=== PATIENT | female | born 1975 | race Caucasian/White ===

== ENCOUNTER 2022-07-15 18:22 | Observation (INO) ==
[2022-07-15] MEDS ORDERED: methylPREDNISolone 125 MG/2 ML VIAL IV STA (18:34)
[2022-07-15] MEDS ORDERED: SODIUM CHLORIDE 0.9% 500 ML IV STA (18:34)
[2022-07-15] MEDS ORDERED: ALBUT/IPRATROP 3MG/0.5MG NEB 3 ML VIAL NEB STA (18:34)
[2022-07-15 18:44] LABS: Basophils # (auto) 0.01 K/uL (0-0.2); Basophils % (auto) 0.2 %; Eosinophils # (auto) 0.02 K/uL (0-0.50); Eosinophils % (auto) 0.4 %; Hematocrit (blood only) 37.9 % (34.1-44.9); Hemoglobin 12.4 g/dl (12.0-16.0); Immature Granulocytes # (auto) 0.01 K/uL (0.00-0.02); Immature Granulocytes % (auto) 0.2 %; Lymphocytes # (auto) 0.79 K/uL (1.2-3.4); Lymphocytes % (auto) 14.2 %; Mean Corpuscular Hemoglobin 28.1 pg (25.0-34.0); Mean Corpuscular Hgb Conc 32.7 g/dL (32.0-36.0); Mean Corpuscular Volume 85.9 fL (80.0-100.0); Mean Platelet Volume 9.7 fL (9.4-12.3); Monocytes # (auto) 0.65 K/uL (0.24-0.82); Monocytes % (auto) 11.7 %; Neutrophils # (auto) 4.07 K/uL (1.4-6.5); Neutrophils % (auto) 73.3 %; Platelet Count 213 K/uL (130-400); RDW Coefficient of Variation 13.5 % (11.5-14.5); RDW Standard Deviation 42.6 fL (36.4-46.3); Red Blood Count 4.41 M/uL (3.93-5.22); White Blood Count 5.55 K/ul (4.8-10.8)
[2022-07-15 18:55] LABS: Partial Thromboplastin Ratio 1.1; Partial Thromboplastin Time 30.2 Seconds (21.0-31.0); Prothrombin Time 10.9 Seconds (9.0-12.0)
--- NOTE | 2022-07-15 18:56 | Emergency Department Note ---
Impression & Plan Hypoxia, COPD exacerbation, Flu-like symptoms, Influenza ED Provider Note NAME: CAMELIA GEORGE AGE: 47 SEX: F : 1975 ARRIVES VIA: Ambulance INFORMANT: [Patient][nursing, EMS] ED PROVIDER(S):[Canelo Scherer MD] CHIEF COMPLAINT: Short of breath HISTORY OF PRESENT ILLNESS: The patient is a 47-year-old female with a history of COPD. She presents with 3 days of increasing shortness of breath and fever. She has had a cough and some back pain. Today, she developed some significant central chest pain that has been present all day. She became so short of breath that she felt she should come by ambulance to the hospital. In route, she was given 2 sublingual n itroglycerin, 4 baby aspirin and a DuoNeb, she feels somewhat better. As per EMS, her O2 saturation on room air was 87% prior to their nebulizer treatment. The patient states that her significant other has been ill with a respiratory complaint, he seems to be getting better. She is not sure if she caught something from him or if this is something else. REVIEW OF SYSTEMS: See HPI for pertinent positives and negatives. A total of ten systems were reviewed and were otherwise negative. PMHx/PSHx: See Below SOCIAL HISTORY: See Below. PHYSICAL EXAM: GENERAL: Patient is in no acute distress. HEENT: No acute trauma, normocephalic atraumatic, mucous membranes moist, no nasal congestion, no scleral icterus. NECK: No stridor, no adenopathy, no meningismus, trachea is midline. LUNGS: Moist cough noted, wheezing bilaterally with diminished breath sounds bilaterally. No significant respiratory distress currently HEART: Tachycardic and irregular, no murmurs. ABDOMEN: Soft, nontender, bowel sounds positive, no peritonitis. EXTREMITIES: No cyanosis or edema, full range of motion of all the joints without pain or difficulty, no signs for acute trauma. NEUROLOGIC: Oriented x 3, no acute motor or sensory deficits, no focal weakness. SKIN: No rash, no jaundice, no diaphoresis. DIFFERENTIAL DIAGNOSIS: Reactive airway disease, pneumonia, influenza, RSV, COVID-19, pneumothorax, COPD, CHF, infection, cardiac ischemia, anemia, pulmonary embolism, bronchitis, as well as other pathologies. EMERGENCY DEPARTMENT COURSE/PROCEDURES: ECG: Indication was shortness of breath. The ECG shows a sinus tachycardia with frequent PVCs. The rate is 122. There is no ST elevation, the QTc is 447. Continuous Cardiac Monitoring: An order was placed for continuous cardiac monitoring. The monitor shows a rate of 121 with sinus tachycardia with PVCs. Critical Care Note: I have personally spent 47 minutes of critical care time in the direct management of this patient. This includes bedside care, interpretation of diagnostic studies, and testing, discussion with consultants, patient, and family members, and other required patient management activities. This 47 minutes is in excess of all separately billable procedures. MEDICAL DECISION MAKING: There is no leukocytosis or concerning anemia. There is a normal platelet count. No coagulopathy. Potassium is slightly low but not in need of emergent correction. No renal failure. Calcium was somewhat low, no concerning liver enzyme elevation. Lactic acid level was not elevated making severe sepsis less likely. ECG shows a sinus tachycardia with frequent PVCs, no obvious ischemia. Cardiac enzyme testing x1 is not consistent with acute cardiac injury. Respiratory bio fire returned positive for influenza A. Chest film did not show pneumonia or CHF. On exam, patient was wheezing with diminished breath sounds. She was initially hypoxic. The patient received a DuoNeb, she was given IV saline, 500 cc. She received IV Solu-Medrol, 60 mg. The patient has influenza A, this has led to hypoxia, dyspnea, flulike symptoms and a flare of her COPD. Given her hypoxia and COPD history, I do think a hospital stay is warranted. I spoke with the patient and case management, the on-call hospitalist was consulted. The patient does seem improved with her treatment provided here in [facility] ED. 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 Beliefs That Will Affect Care: None Current Living Situation: Spouse Feels Safe at Home: Yes Assistive Devices: Oxygen - Continuous Allergies Allergies Allergy/AdvReac Type Severity Reaction Status Date / Time No Known Allergies Allergy Verified 05/25/22 12:49 Home Meds Home Medications Medication Instructions Recorded Confirmed ipratropium 0.5 mg-albuterol 3 mg 3 ml inhalation QID 07/13/18 05/25/22 (2.5 mg base)/3 mL nebulization soln albuterol sulfate 90 mcg/actuation 2 puffs inhalation Q4H PRN 02/20/19 05/25/22 aerosol inhaler (Ventolin HFA) Previous Rx's Medication Instructions Recorded nebulizer accessories #1 ea 02/08/21 nebulizers #1 ea 02/08/21 budesonide 0.5 mg/2 mL suspension 0.5 mg (2 mL) inhalation BID #360 12/04/21 for nebulization mL Symbicort 160 mcg-4.5 2 inh inhalation BID #10.2 grams 02/12/22 mcg/actuation HFA aerosol inhaler (budesonide-formoterol) umeclidinium 62.5 mcg/actuation 1 inh inhalation DAILY #30 ea 03/22/22 blister powder for inhalation (Incruse Ellipta) benralizumab 30 mg/mL subcutaneous 30 mg subcut .every 4 weeks #1 mL 05/28/22 syringe (Fasenra) Results & Data (ED) Vital Signs Vital Signs - 24 hr 07/15/22 18:35 07/15/22 19:05 07/15/22 20:00 Pulse Rate 118 H 106 H Pulse Rate [Apical] 106 H Pulse Rate from SpO2 Sensor 106 H Pulse Rhythm Irregular Respiratory Rate 14 20 Blood Pressure 149/87 H Blood Pressure Mean 107 Pulse Oximetry 88 L 92 91 Oxygen Delivery Method Room Air Room Air Room Air Sepsis Recent Fever Within 48 Hours Yes Sepsis New/Unexplained Change in Mental Status No Sepsis Action Taken by Nursing No Action Required Home Medications Current Medication List: was personally reviewed by me Laboratory Data Attestation: I reviewed the patient's lab results. Result diagrams: 07/15/22 18:33 07/15/22 18:33 Lab Results 07/15/22 07/15/22 07/15/22 Range/Units 18:33 18:33 18:33 WBC 5.55 (4.8-10.8) K/ul RBC 4.41 (3.93-5.22) M/uL Hgb 12.4 (12.0-16.0) g/dl Hct 37.9 (34.1-44.9) % MCV 85.9 (80.0-100.0) fL MCH 28.1 (25.0-34.0) pg MCHC 32.7 (32.0-36.0) g/dL RDW Std Deviation 42.6 (36.4-46.3) fL RDW Coeff of Suleiman 13.5 (11.5-14.5) % Plt Count 213 (130-400) K/uL MPV 9.7 (9.4-12.3) fL Immature Gran % (Auto) 0.2 % Neut % (Auto) 73.3 % Lymph % (Auto) 14.2 % [place] % (Auto) 11.7 % Eos % (Auto) 0.4 % Baso % (Auto) 0.2 % Neut # (Auto) 4.07 (1.4-6.5) K/uL Lymph # (Auto) 0.79 L (1.2-3.4) K/uL [place] # (Auto) 0.65 (0.24-0.82) K/uL Eos # (Auto) 0.02 (0-0.50) K/uL Baso # (Auto) 0.01 (0-0.2) K/uL Immature Gran # (Auto) 0.01 (0.00-0.02) K/uL PT 10.9 (9.0-12.0) Seconds INR 1.0 (0.9-1.1) APTT 30.2 (21.0-31.0) Seconds PTT Ratio 1.1 Sodium 134 L (136-145) mmol/L Potassium 3.4 L (3.5-5.1) mmol/L Chloride 100 (98-107) mmol/L Carbon Dioxide 26 (21-32) mmol/L Anion Gap 8 (3-11) BUN 10 (6-23) mg/dl Creatinine 0.86 (0.6-1.2) mg/dl Est Cr Clr Drug Dosing 76.5 ml/min Est GFR ( Amer) 93.9 ml/min Est GFR (Non-Af Amer) 81.0 ml/min BUN/Creatinine Ratio 11.6 (10-20) Glucose 118 H (70-99(Fasting)) mg/dl Lactate (0.4-2.0) mmol/L Calcium 7.9 L (8.5-10.1) mg/dl Magnesium 1.9 (1.7-2.4) mg/dl Total Bilirubin 0.3 (0.2-1.0) mg/dl AST 29 (13-39) U/L ALT 30 (7-52) U/L Alkaline Phosphatase 107 H (34-104) U/L Troponin I High Sens 6.4 (0-14) pg/ml C-Reactive Protein (0-0.5) mg/dl Total Protein 7.0 (6.0-8.3) gm/dl Albumin 3.8 (3.4-5.0) gm/dl Globulin 3.2 (2.5-4.0) gm/dl Albumin/Globulin Ratio 1.2 (0.9-2) Procalcitonin (0-0.5) ng/ml Adenovirus (PCR) (NotDetected) B. pertussis DNA (PCR) (NotDetected) B.parapertussis DNA PCR (NotDetected) C. pneumoniae DNA (PCR) (NotDetected) Coronavirus OC43 (PCR) (NotDetected) Coronavirus HKU1 (PCR) (NotDetected) Coronavirus 229E (PCR) (NotDetected) SARS-CoV-2 (PCR) (NotDetected) Coronavirus NL63 (PCR) (NotDetected) Human Metapneumovir PCR (NotDetected) Influenza A (H3) PCR (NotDetected) Influenza Type B (PCR) (NotDetected) M. pneumoniae (PCR) (NotDetected) Parainfluenza 1 (PCR) (NotDetected) Parainfluenza 2 (PCR) (NotDetected) Parainfluenza 3 (PCR) (NotDetected) Parainfluenza 4 (PCR) (NotDetected) RSV (PCR) (NotDetected) Entero/Rhino (PCR) (NotDetected) 07/15/22 07/15/22 07/15/22 Range/Units 18:33 18:33 18:49 WBC (4.8-10.8) K/ul RBC (3.93-5.22) M/uL Hgb (12.0-16.0) g/dl Hct (34.1-44.9) % MCV (80.0-100.0) fL MCH (25.0-34.0) pg MCHC (32.0-36.0) g/dL RDW Std Deviation (36.4-46.3) fL RDW Coeff of Suleiman (11.5-14.5) % Plt Count (130-400) K/uL MPV (9.4-12.3) fL Immature Gran % (Auto) % Neut % (Auto) % Lymph % (Auto) % [place] % (Auto) % Eos % (Auto) % Baso % (Auto) % Neut # (Auto) (1.4-6.5) K/uL Lymph # (Auto) (1.2-3.4) K/uL [place] # (Auto) (0.24-0.82) K/uL Eos # (Auto) (0-0.50) K/uL Baso # (Auto) (0-0.2) K/uL Immature Gran # (Auto) (0.00-0.02) K/uL PT (9.0-12.0) Seconds INR (0.9-1.1) APTT (21.0-31.0) Seconds PTT Ratio Sodium (136-145) mmol/L Potassium (3.5-5.1) mmol/L Chloride (98-107) mmol/L Carbon Dioxide (21-32) mmol/L Anion Gap (3-11) BUN (6-23) mg/dl Creatinine (0.6-1.2) mg/dl Est Cr Clr Drug Dosing ml/min Est GFR ( Amer) ml/min Est GFR (Non-Af Amer) ml/min BUN/Creatinine Ratio (10-20) Glucose (70-99(Fasting)) mg/dl Lactate 0.9 (0.4-2.0) mmol/L Calcium (8.5-10.1) mg/dl Magnesium (1.7-2.4) mg/dl Total Bilirubin (0.2-1.0) mg/dl AST (13-39) U/L ALT (7-52) U/L Alkaline Phosphatase (34-104) U/L Troponin I High Sens (0-14) pg/ml C-Reactive Protein 3.19 H (0-0.5) mg/dl Total Protein (6.0-8.3) gm/dl Albumin (3.4-5.0) gm/dl Globulin (2.5-4.0) gm/dl Albumin/Globulin Ratio (0.9-2) Procalcitonin 0.06 (0-0.5) ng/ml Adenovirus (PCR) (NotDetected) B. pertussis DNA (PCR) (NotDetected) B.parapertussis DNA PCR (NotDetected) C. pneumoniae DNA (PCR) (NotDetected) Coronavirus OC43 (PCR) (NotDetected) Coronavirus HKU1 (PCR) (NotDetected) Coronavirus 229E (PCR) (NotDetected) SARS-CoV-2 (PCR) (NotDetected) Coronavirus NL63 (PCR) (NotDetected) Human Metapneumovir PCR (NotDetected) Influenza A (H3) PCR (NotDetected) Influenza Type B (PCR) (NotDetected) M. pneumoniae (PCR) (NotDetected) Parainfluenza 1 (PCR) (NotDetected) Parainfluenza 2 (PCR) (NotDetected) Parainfluenza 3 (PCR) (NotDetected) Parainfluenza 4 (PCR) (NotDetected) RSV (PCR) (NotDetected) Entero/Rhino (PCR) (NotDetected) 07/15/22 Range/Units 19:10 WBC (4.8-10.8) K/ul RBC (3.93-5.22) M/uL Hgb (12.0-16.0) g/dl Hct (34.1-44.9) % MCV (80.0-100.0) fL MCH (25.0-34.0) pg MCHC (32.0-36.0) g/dL RDW Std Deviation (36.4-46.3) fL RDW Coeff of Suleiman (11.5-14.5) % Plt Count (130-400) K/uL MPV (9.4-12.3) fL Immature Gran % (Auto) % Neut % (Auto) % Lymph % (Auto) % [place] % (Auto) % Eos % (Auto) % Baso % (Auto) % Neut # (Auto) (1.4-6.5) K/uL Lymph # (Auto) (1.2-3.4) K/uL [place] # (Auto) (0.24-0.82) K/uL Eos # (Auto) (0-0.50) K/uL Baso # (Auto) (0-0.2) K/uL Immature Gran # (Auto) (0.00-0.02) K/uL PT (9.0-12.0) Seconds INR (0.9-1.1) APTT (21.0-31.0) Seconds PTT Ratio Sodium (136-145) mmol/L Potassium (3.5-5.1) mmol/L Chloride (98-107) mmol/L Carbon Dioxide (21-32) mmol/L Anion Gap (3-11) BUN (6-23) mg/dl Creatinine (0.6-1.2) mg/dl Est Cr Clr Drug Dosing ml/min Est GFR ( Amer) ml/min Est GFR (Non-Af Amer) ml/min BUN/Creatinine Ratio (10-20) Glucose (70-99(Fasting)) mg/dl Lactate (0.4-2.0) mmol/L Calcium (8.5-10.1) mg/dl Magnesium (1.7-2.4) mg/dl Total Bilirubin (0.2-1.0) mg/dl AST (13-39) U/L ALT (7-52) U/L Alkaline Phosphatase (34-104) U/L Troponin I High Sens (0-14) pg/ml C-Reactive Protein (0-0.5) mg/dl Total Protein (6.0-8.3) gm/dl Albumin (3.4-5.0) gm/dl Globulin (2.5-4.0) gm/dl Albumin/Globulin Ratio (0.9-2) Procalcitonin (0-0.5) ng/ml Adenovirus (PCR) Not Detected (NotDetected) B. pertussis DNA (PCR) Not Detected (NotDetected) B.parapertussis DNA PCR Not Detected (NotDetected) C. pneumoniae DNA (PCR) Not Detected (NotDetected) Coronavirus OC43 (PCR) Not Detected (NotDetected) Coronavirus HKU1 (PCR) Not Detected (NotDetected) Coronavirus 229E (PCR) Not Detected (NotDetected) SARS-CoV-2 (PCR) Not Detected (NotDetected) Coronavirus NL63 (PCR) Not Detected (NotDetected) Human Metapneumovir PCR Not Detected (NotDetected) Influenza A (H3) PCR DETECTED A* (NotDetected) Influenza Type B (PCR) Not Detected (NotDetected) M. pneumoniae (PCR) Not Detected (NotDetected) Parainfluenza 1 (PCR) Not Detected (NotDetected) Parainfluenza 2 (PCR) Not Detected (NotDetected) Parainfluenza 3 (PCR) Not Detected (NotDetected) Parainfluenza 4 (PCR) Not Detected (NotDetected) RSV (PCR) Not Detected (NotDetected) Entero/Rhino (PCR) Not Detected (NotDetected) Administered Medications Enoxaparin Sodium (Enoxaparin Inj 40 Mg/0.4 Ml Syr) 40 mg SQ HS [facility] Stop: 08/14/22 22:59 Last Admin: 07/16/22 00:15 Dose: Not Given Documented By: RODRIGO Guaifenesin (Guaifenesin 600 Mg Tabcr) 1,200 mg PO BID [facility] Stop: 08/14/22 22:28 Last Admin: 07/16/22 00:14 Dose: 1,200 mg Documented By: RODRIGO Potassium Chloride/Sodium Chloride (Normal Saline W/20 Meq Kcl) 20 meq in 1,000 mls @ 80 mls/hr IV .[id number] [facility] Stop: 07/16/22 10:58 Last Admin: 07/16/22 00:16 Dose: 80 mls/hr Documented By: RODRIGO Oseltamivir Phosphate (Oseltamivir Phosphate 75 Mg Cap) 75 mg PO BID [facility]; Protocol Stop: 07/20/22 22:28 Last Admin: 07/16/22 00:14 Dose: 75 mg Documented By: RODRIGO Discontinued Medications Albuterol (Albut/Ipratrop 3mg/0.5mg Neb 3 Ml Vial) 3 ml NEB NOW STA; Protocol Stop: 07/15/22 18:35 Last Admin: 07/15/22 19:04 Dose: 3 ml Documented By: RODRIGO Azithromycin (Azithromycin 250 Mg Tab) 500 mg PO NOW ONE Stop: 07/15/22 22:30 Last Admin: 07/16/22 00:14 Dose: 500 mg Documented By: RODRIGO Sodium Chloride (Nss) 500 mls @ 999 mls/hr IV .Q31M STA Stop: 07/15/22 19:04 Last Infusion: 07/15/22 20:50 Dose: 0 mls/hr Documented By: Admin: 07/15/22 19:02 Dose: 999 mls/hr Documented By: RODRIGO Methylprednisolone (Methylprednisolone 125 Mg/2 Ml Vial) 60 mg IV NOW STA Stop: 07/15/22 18:35 Last Admin: 07/15/22 19:04 Dose: 60 mg Documented By: RODRIGO Potassium Chloride (Potassium Chloride Crtab 20 Meq Tabcr) 40 meq PO NOW STA Stop: 07/15/22 22:30 Last Admin: 07/16/22 00:19 Dose: 40 meq Documented By: RODRIGO Imaging Data Radiologist's Impression: Chest X-Ray 07/15/22 18:35 XR chest 1V portable HISTORY: Dyspnea COMPARISON: Chest 07/13/2018. FINDINGS: No pneumothorax. No pleural effusions. The heart is top normal in size. The lungs are hyperexpanded. No evidence for pulmonary edema. No new focal lung consolidations to suggest a pneumonia. Stable interstitial prominence of the lung bases may be due to vascular crowding from the hyperexpanded lungs. IMPRESSION: No significant change compared to the prior study. No acute process. ACT 112: Negative or not required by law. Electronically signed by: Javier Baldwin M.D. 07/15/2022 7:25 PM Discharge Plan Visit Data Chief Complaint: Illness Stated Complaint: CHEST PAIN, FEVER, ILLNESS ED Provider: Canelo Scherer Discharge Problem: Hypoxia, COPD exacerbation, Flu-like symptoms, Influenza Patient Disposition: Admitted As Inpatient Condition: Fair Discharge Instructions Interventions: ED Discharge Assessment Last Done: 07/15/22 22:29
[2022-07-15 19:10] LABS: Troponin I High Sensitivity 6.4 pg/ml (0-14)
[2022-07-15 19:15] LABS: Albumin Globulin Ratio 1.2 (0.9-2); Albumin Level 3.8 gm/dl (3.4-5.0); BUN Creatinine Ratio 11.6 (10-20); Bilirubin,Total 0.3 mg/dl (0.2-1.0); Calcium 7.9 mg/dl (8.5-10.1); Creatinine Clr Calc Pharmacy 76.5 ml/min; Est GFR (African American) 93.9 ml/min; Globulin 3.2 gm/dl (2.5-4.0); Magnesium 1.9 mg/dl (1.7-2.4); Potassium 3.4 mmol/L (3.5-5.1)
--- NOTE | 2022-07-15 19:26 | XRay Report ---
XR chest 1V portable HISTORY: Dyspnea COMPARISON: Chest 07/13/2018. FINDINGS: No pneumothorax. No pleural effusions. The heart is top normal in size. The lungs are hyper expanded. No evidence for pulmonary edema. No new focal lung consolidations to suggest a pneumonia. S table interstitial prominence of the lung bases may be due to vascular crowding from the hyperexpande d lungs. IMPRESSION: No significant change compared to the prior study. No acute process. ACT 112: Negative or not required by law. Electronically signed by: Javier Baldwin M.D. 07/15/2022 7:25 PM
--- NOTE | 2022-07-15 19:57 | History & Physical Report ---
Date of Service July 15, 2022 Assessment & Plan (1) COPD with exacerbation: Plan: Fever/chills, body aches, shortness of breath, and increased cough/mucus x3 days. Hypoxic to 88% on room air and improved on 2L, scattered wheezes on exam --> Moderate COPD exacerbation due to influenza A. - s/p SoluMedrol 60mg IV in ED - continue with 40mg IV Q8H - Start 5-day z-pack as well as Oseltamivir 75mg PO BID - s/p Duonebs x1 and Albuterol nebs x1, with tachycardia 100s-110s - continue with Xopenex nebs Q6H scheduled + Q2H PRN - pulmonary toilet: Mucinex BID, incentive spirometry and flutter valve - light IV hydration with NSS +20mEq KCl @80cc/hr x1L (2) Influenza A: Plan: Plan as above (3) Tachycardia: Plan: Sinus tachycardia 100s-110s, likely due to frequent Albuterol dosing prior to admission. Utilize Xopenex nebs as stated above. Telemetry monitoring. (4) Eosinophilic asthma: Plan: F/w Dr. Harmon and Dr. Woo, with plans to start Fasenra qmonthly injections. (5) Severe persistent asthma: Plan: Continue home inhalers (6) Hypokalemia: Plan: K 3.4 - repleted with KCl 40mEq tablet and K-containing IVFs. - check BMP in AM History of Present Illness Chief Complaint: illness Primary Care Provider: Bety Yang is a 47yo female with PMHx significant for COPD (Gold 4, FEV1 26% when checked in 03/2022), severe persistent eosinophilic asthma (on Fasenra), chronic hypoxic respiratory failure (on home O2), and significant second hand smoke exposure hx, who presented to [facility] ED on 07/15 for fever/chills, body aches and cough, x3 days. Also c/o inspiratory chest/back pain that occurred with cough, in addition to hypoxia to 87% on room air at home. Patient was given ASA 324mg, Nitro SL x2 and Duonebs x1 by EMS with minimal improvement in s ymptoms. In the ED the patient was tachycardic to 118 and initially SpO2 88% on room air but improved to 92% on room air. Labs significant for leukopenia 0.79, Na 134, K 3.4. Respiratory biofire panel positive for influenza A. CXR with chronically hyperexpanded lungs but no acute process. In the ED patient was given Albuterol nebs x1 (total of 2 today), NSS 500cc bolus, and SoluMedrol 60mg IV x1. Allergies Allergy/AdvReac Type Severity Reaction Status Date / Time No Known Allergies Allergy Verified 05/25/22 12:49 Home Medications Medication Instructions Recorded Confirmed Type ipratropium 0.5 mg-albuterol 3 mg 3 ml inhalation QID 07/13/18 07/16/22 History (2.5 mg base)/3 mL nebulization soln nebulizer accessories #1 ea 02/08/21 07/16/22 Rx nebulizers #1 ea 02/08/21 07/16/22 Rx budesonide 0.5 mg/2 mL suspension 0.5 mg (2 mL) inhalation BID #360 12/04/21 07/16/22 Rx for nebulization mL Symbicort 160 mcg-4.5 2 inh inhalation BID #10.2 grams 02/12/22 07/16/22 Rx mcg/actuation HFA aerosol inhaler (budesonide-formoterol) umeclidinium 62.5 mcg/actuation 1 inh inhalation DAILY #30 ea 03/22/22 07/16/22 Rx blister powder for inhalation (Incruse Ellipta) benralizumab 30 mg/mL subcutaneous 30 mg subcut .every 4 weeks #1 mL 05/28/22 07/16/22 Rx syringe (Fasenra) acetaminophen 500 mg tablet 1,000 mg PO Q6H PRN Pain 07/16/22 07/16/22 History (Tylenol Extra Strength) azithromycin 250 mg tablet 250 mg PO QAM #1 tab 07/18/22 Rx oseltamivir 75 mg capsule (Tamiflu) 75 mg PO BID #4 caps 07/18/22 Rx prednisone 20 mg tablet 40 mg PO QAM #1 tab 07/18/22 Rx Past Med/Surg History Medical History Chronic respiratory failure with hypoxia, on home O2 therapy COPD (chronic obstructive pulmonary disease) Eosinophilic asthma Severe persistent asthma Family History Other No significant family history Social History Smoking Status: Never smoker Second Hand Exposure: Yes (SIGNIFICANT); Hx Alcohol Use: No Hx Substance Use: No Preferred Language: Croatian Communication Ability: Effective Composite Laminator Required: No Beliefs That Will Affect Care: Spiritual Current Living Situation: Family Feels Safe at Home: Yes Assistive Devices: Other Review of Systems Review of Systems: All systems reviewed & are unremarkable except as noted in HPI & below Physical Exam Physical Exam: General: A&Ox3. NAD. Cooperative. HEENT: Atraumatic, normocephalic. Pulm: Bilateral wheezes, but good aeration. No rales/rhonchi. Symmetrical chest rise. No increase work of breathing. No respiratory distress. Cardiac: RRR, -mrg. Radial pulses intact and symmetrical. No LE edema. Abdominal: soft, non-tender, non-distended, BS x 4 Skin: warm, dry, no rash Results & Data Results & Data ([facility]) Vital Signs (Past 12 Hours) Vital Signs Pulse Pulse Resp BP Pulse Ox O2 Del Method 07/15/22 19:05 106 H 14 92 Room Air 07/15/22 18:35 118 H 149/87 H 88 L Room Air Supervising Physician Co-Signing Physician Notes Attending addendum: I have physically seen this patient, have supervised the medical residents activities, and agree with the H&P unless as otherwise noted. Assessment and Plan: COPD exacerbation/influenza A/eosinophilic asthma- Received Solu-Medrol 60 mg IV in the ED Solu-Medrol 40 mg IV every 8 hours Azithromycin Z-Rush Tamiflu 75 mg p.o. twice daily Xopenex nebulizer every 6 hours while awake and every 2 hours as needed Guaifenesin extended release 12 mg p.o. twice daily Incentive spirometry NSS + KCl 20 mEq at 80 mils per hour To begin Fasenra monthly injections with pulmonology and allergy soon Remaining orders and notations as noted Resident Activity Tracking Resident Involvement: Resident Care Provided Care Provided: Adult Hospital Medicine
[2022-07-15 20:09] LABS: Adenovirus PCR Not Detected (NotDetected); Bordetella parapertussis PCR Not Detected (NotDetected); Bordetella pertussis PCR Not Detected (NotDetected); Chlamydia pneumoniae PCR Not Detected (NotDetected); Coronavirus 229E PCR Not Detected (NotDetected); Coronavirus CoV-2 (COVID19)PCR Not Detected (NotDetected); Coronavirus HKU1 PCR Not Detected (NotDetected); Coronavirus NL63 PCR Not Detected (NotDetected); Coronavirus OC43PCR Not Detected (NotDetected); Human Metapneumovirus PCR Not Detected (NotDetected); Influenza B PCR Not Detected (NotDetected); Mycoplasma pneumoniae PCR Not Detected (NotDetected); Parainfluenza Virus 1 PCR Not Detected (NotDetected); Parainfluenza Virus 2 PCR Not Detected (NotDetected); Parainfluenza Virus 3 PCR Not Detected (NotDetected); Parainfluenza Virus 4 PCR Not Detected (NotDetected); Respiratory Syncytial VirusPCR Not Detected (NotDetected); Rhinovirus/Enterovirus PCR Not Detected (NotDetected)
[2022-07-15 20:30] LABS: Influenza A (H3) PCR DETECTED (NotDetected)
[2022-07-15] MEDS ORDERED: AZITHROMYCIN 250 MG TAB PO ONE (22:29)
[2022-07-15] MEDS ORDERED: ACETAMINOPHEN 500 MG TAB PO PRN (22:29)
[2022-07-15] MEDS ORDERED: LEVALBUTEROL HCL 0.63 MG/3 ML NEB NEB PRN (22:29)
[2022-07-15] MEDS ORDERED: NSS + 20MEQ KCL 20 MEQ/1,000 ML BAG IV SCH (22:29)
[2022-07-15] MEDS ORDERED: POTASSIUM CHLORIDE CRTAB 20 MEQ TABCR PO STA (22:29)
[2022-07-15] MEDS ORDERED: ONDANSETRON INJ 2 MG/ML 2 ML VIAL IV PRN (22:29)
[2022-07-16] MEDS: OSELTAMIVIR PHOSPHATE 75 MG CAP PO SCH ×3 (00:14→20:52)
[2022-07-16] MEDS: guaiFENesin 600 MG TABCR PO SCH ×3 (00:14→20:52)
[2022-07-16] MEDS: ENOXAPARIN INJ 40 MG/0.4 ML SYR SQ SCH ×2 (00:15→20:51)
[2022-07-16] MEDS: LEVALBUTEROL HCL 0.63 MG/3 ML NEB NEB SCH ×4 (01:13→19:48)
[2022-07-16 03:56] LABS: Basophils # (auto) 0.01 K/uL (0-0.2); Basophils % (auto) 0.2 %; Hematocrit (blood only) 38.6 % (34.1-44.9); Hemoglobin 12.7 g/dl (12.0-16.0); Immature Granulocytes # (auto) 0.03 K/uL (0.00-0.02); Immature Granulocytes % (auto) 0.5 %; Lymphocytes % (auto) 6.8 %; Mean Corpuscular Hemoglobin 28.4 pg (25.0-34.0); Mean Corpuscular Hgb Conc 32.9 g/dL (32.0-36.0); Mean Corpuscular Volume 86.4 fL (80.0-100.0); Mean Platelet Volume 9.6 fL (9.4-12.3); Monocytes # (auto) 0.24 K/uL (0.24-0.82); Monocytes % (auto) 4.1 %; Neutrophils # (auto) 5.23 K/uL (1.4-6.5); Neutrophils % (auto) 88.4 %; Platelet Count 201 K/uL (130-400); RDW Coefficient of Variation 13.5 % (11.5-14.5); RDW Standard Deviation 42.5 fL (36.4-46.3); Red Blood Count 4.47 M/uL (3.93-5.22); White Blood Count 5.91 K/ul (4.8-10.8)
[2022-07-16] MEDS: methylPREDNISolone 40 MG in SYRINGE 0 ML IV SCH ×3 (04:34→20:52)
[2022-07-16 05:19] LABS: Calcium 8.9 mg/dl (8.5-10.1); Creatinine Clr Calc Pharmacy 87.7 ml/min; Est GFR (African American) 110.8 ml/min; Est GFR (Non-African American) 95.6 ml/min; Magnesium 2.1 mg/dl (1.7-2.4); Potassium 4.8 mmol/L (3.5-5.1)
--- NOTE | 2022-07-16 07:58 | Hospitalist Progress Note ---
Date of Service July 16, 2022 Assessment & Plan (1) COPD with exacerbation: Plan: Caity Yang is a 47 y/o female with PMHx significant for COPD (Gold 4, FEV1 26% when checked in 03/2022), severe persistent eosinophilic asthma, chronic hypoxic respiratory failure (on home O2), and significant second hand smoke exposure hx, who presented to [facility] ED on 07/15 for fever/chills, body aches and cough, x3 days with associated inspiratory chest/back pain and hypoxia to 87% on RA now admitted for COPD exacerbation/asthma exacerbation in the setting of Flu A infection. Patient was given ASA 324mg, Nitro SL x2 and Duonebs x1 by EMS with minimal improvement in symptoms. In the ED the patient was tachycardic to 118 and initially SpO2 88% on room air but improved to 92% on room air. Labs significant for leukopenia 0.79, Na 134, K 3.4. Respiratory biofire panel positive for influenza A. CXR with chronically hyperexpanded lungs but no acute process. In the ED patient was given Albuterol nebs x1 (total of 2 today), NSS 500cc bolus, and SoluMedrol 60mg IV x1. #COPD/Asthma with exacerbation Fever/chills, body aches, shortness of breath, and increased cough/mucus x3 days. Hypoxic to 88% on room air and improved on 2L, scattered wheezes on exam --> Moderate COPD exacerbation due to influenza A. S/p SoluMedrol 60mg IV in ED [] continue with SoluMedrol 40mg IV Q8H, can transition to PO prednisone as patient improves [] Azithromycin 500 mg x1, 250 mg x4 (2/), Oseltamivir 75 mg PO BID [] Xopenex nebs scheduled and as needed, s/p duoneb x1 albuterol neb x1 with tachycardia 100s-110s [] Encourage IS and flutter valve #Influenza A Plan as above #Tachycardia Sinus tachycardia 100s-110s, likely due to frequent Albuterol dosing prior to admission. Utilize Xopenex nebs as stated above. Telemetry monitoring. #Eosinophilic asthma F/w Dr. Harmon and Dr. Woo, with plans to start Fasenra qmonthly injections. Continue home inhalers #Hypokalemia - improved K 3.4 - repleted with KCl 40mEq tablet and K-containing IVFs. K 4.8 today. [] AM BMP Code status: full DVT ppx: Lovenox MCKINLEYI: regular Dispo medsurg tele (2) Influenza A: (3) Tachycardia: (4) Eosinophilic asthma: (5) Severe persistent asthma: (6) Hypokalemia: Admission and Anticipated Discharge Date Admission Date: July 15, 2022 Supervising Physician Co-Signing Physician Notes Patient seen and examined with PGY-1 Dr. Latif. Agree with history, exam findings, assessment and plan of care as outlined. Caity Yang is 47 year old female with history of COPD, severe persistent eosinophilic asthma, chronic hypoxic respiratory failure (2L O2 at baseline) admitted with COPD/asthma exacerbation in the setting of influenza A infection. VS and nursing notes reviewed. Non-toxic appearing. Heart with regular rate and rhythm. Breathing comfortably on 2L O2. No accessory muscle use. Lungs with good air movement throughout. Coarse breath sounds throughout with slight end expiratory wheeze. Labs and imaging reviewed. 1. Asthma/COPD exacerbation in the setting of influenza A. SoluMedrol 40mg IV q8h, Tamiflu, azithromycin. Xopenex q6h scheduled and q2h PRN. Mucienx, ICS, flutter. On chronic home O2 (2L at baseline, titrate to 88-92%). 2. Eosinophilic asthma, severe persistent asthma. Follows with pulm and allergy as an outpatient. 3. Tachycardia. Likely secondary to beta-agonist. Dispo: pending clinical improvement. Subjective Patient notes that she is feeling a bit better and improving towards her baseline. On 2 L NC as needed at home. She does report having loose stools, but notes that today was one of her first full meals in awhile. Review of Systems Review of Systems: See HPI Physical Exam Physical Exam: General: A&Ox3. NAD. Cooperative. HEENT: Atraumatic, normocephalic. Pulm: Bilateral wheezes, but good aeration. Minimal rhonchi. Symmetrical chest rise. No increased work of breathing. No respiratory distress. Cardiac: RRR, -mrg. Skin: warm, dry, no rash Results & Data Results & Data ([facility]) Vital Signs (Past 12 Hours) Vital Signs Temp Pulse Pulse Resp BP Pulse Ox Pulse Ox 07/16/22 07:33 07/16/22 07:33 36.8 C 92 H 18 113/79 95 07/16/22 05:48 84 20 96 07/16/22 05:00 83 20 95 07/16/22 02:00 95 07/16/22 02:00 87 20 132/76 95 07/16/22 01:14 90 18 94 07/15/22 23:00 92 H 18 93 07/15/22 21:00 103 H 12 90 07/15/22 21:13 88 L 07/15/22 20:00 106 H 20 91 O2 Del Method O2 Del Method O2 Flow Rate O2 Flow Rate 07/16/22 07:33 Nasal Cannula 2 07/16/22 07:33 Nasal Cannula 2 07/16/22 05:48 Nasal Cannula 2 07/16/22 05:00 Nasal Cannula 2 07/16/22 02:00 Nasal Cannula 2 07/16/22 02:00 Nasal Cannula 2 07/16/22 01:14 Nasal Cannula 2 07/15/22 23:00 Nasal Cannula 1.5 07/15/22 21:00 Room Air 07/15/22 21:13 Room Air, Nasal Cannula 07/15/22 20:00 Room Air Laboratory Results 07/16/22 07/16/22 07/15/22 Range/Units 03:37 03:37 19:10 WBC 5.91 (4.8-10.8) K/ul RBC 4.47 (3.93-5.22) M/uL Hgb 12.7 (12.0-16.0) g/dl Hct 38.6 (34.1-44.9) % MCV 86.4 (80.0-100.0) fL MCH 28.4 (25.0-34.0) pg MCHC 32.9 (32.0-36.0) g/dL RDW Std Deviation 42.5 (36.4-46.3) fL RDW Coeff of Suleiman 13.5 (11.5-14.5) % Plt Count 201 (130-400) K/uL MPV 9.6 (9.4-12.3) fL Immature Gran % (Auto) 0.5 % Neut % (Auto) 88.4 % Lymph % (Auto) 6.8 % [place] % (Auto) 4.1 % Eos % (Auto) 0.0 % Baso % (Auto) 0.2 % Neut # (Auto) 5.23 (1.4-6.5) K/uL Lymph # (Auto) 0.40 L (1.2-3.4) K/uL [place] # (Auto) 0.24 (0.24-0.82) K/uL Eos # (Auto) 0.00 (0-0.50) K/uL Baso # (Auto) 0.01 (0-0.2) K/uL Immature Gran # (Auto) 0.03 H (0.00-0.02) K/uL PT (9.0-12.0) Seconds INR (0.9-1.1) APTT (21.0-31.0) Seconds PTT Ratio Sodium 137 (136-145) mmol/L Potassium 4.8 D (3.5-5.1) mmol/L Chloride 104 (98-107) mmol/L Carbon Dioxide 25 (21-32) mmol/L Anion Gap 8 (3-11) BUN 9 (6-23) mg/dl Creatinine 0.75 (0.6-1.2) mg/dl Est Cr Clr Drug Dosing 87.7 ml/min Est GFR ( Amer) 110.8 ml/min Est GFR (Non-Af Amer) 95.6 ml/min BUN/Creatinine Ratio 12.0 (10-20) Glucose 146 H (70-99(Fasting)) mg/dl Lactate (0.4-2.0) mmol/L Calcium 8.9 (8.5-10.1) mg/dl Magnesium 2.1 (1.7-2.4) mg/dl Total Bilirubin (0.2-1.0) mg/dl AST (13-39) U/L ALT (7-52) U/L Alkaline Phosphatase (34-104) U/L Troponin I High Sens (0-14) pg/ml C-Reactive Protein (0-0.5) mg/dl Total Protein (6.0-8.3) gm/dl Albumin (3.4-5.0) gm/dl Globulin (2.5-4.0) gm/dl Albumin/Globulin Ratio (0.9-2) Procalcitonin (0-0.5) ng/ml Adenovirus (PCR) Not Detected (NotDetected) B. pertussis DNA (PCR) Not Detected (NotDetected) B.parapertussis DNA PCR Not Detected (NotDetected) C. pneumoniae DNA (PCR) Not Detected (NotDetected) Coronavirus OC43 (PCR) Not Detected (NotDetected) Coronavirus HKU1 (PCR) Not Detected (NotDetected) Coronavirus 229E (PCR) Not Detected (NotDetected) SARS-CoV-2 (PCR) Not Detected (NotDetected) Coronavirus NL63 (PCR) Not Detected (NotDetected) Human Metapneumovir PCR Not Detected (NotDetected) Influenza A (H3) PCR DETECTED A* (NotDetected) Influenza Type B (PCR) Not Detected (NotDetected) M. pneumoniae (PCR) Not Detected (NotDetected) Parainfluenza 1 (PCR) Not Detected (NotDetected) Parainfluenza 2 (PCR) Not Detected (NotDetected) Parainfluenza 3 (PCR) Not Detected (NotDetected) Parainfluenza 4 (PCR) Not Detected (NotDetected) RSV (PCR) Not Detected (NotDetected) Entero/Rhino (PCR) Not Detected (NotDetected) 07/15/22 07/15/22 07/15/22 Range/Units 18:49 18:33 18:33 WBC (4.8-10.8) K/ul RBC (3.93-5.22) M/uL Hgb (12.0-16.0) g/dl Hct (34.1-44.9) % MCV (80.0-100.0) fL MCH (25.0-34.0) pg MCHC (32.0-36.0) g/dL RDW Std Deviation (36.4-46.3) fL RDW Coeff of Suleiman (11.5-14.5) % Plt Count (130-400) K/uL MPV (9.4-12.3) fL Immature Gran % (Auto) % Neut % (Auto) % Lymph % (Auto) % [place] % (Auto) % Eos % (Auto) % Baso % (Auto) % Neut # (Auto) (1.4-6.5) K/uL Lymph # (Auto) (1.2-3.4) K/uL [place] # (Auto) (0.24-0.82) K/uL Eos # (Auto) (0-0.50) K/uL Baso # (Auto) (0-0.2) K/uL Immature Gran # (Auto) (0.00-0.02) K/uL PT (9.0-12.0) Seconds INR (0.9-1.1) APTT (21.0-31.0) Seconds PTT Ratio Sodium (136-145) mmol/L Potassium (3.5-5.1) mmol/L Chloride (98-107) mmol/L Carbon Dioxide (21-32) mmol/L Anion Gap (3-11) BUN (6-23) mg/dl Creatinine (0.6-1.2) mg/dl Est Cr Clr Drug Dosing ml/min Est GFR ( Amer) ml/min Est GFR (Non-Af Amer) ml/min BUN/Creatinine Ratio (10-20) Glucose (70-99(Fasting)) mg/dl Lactate 0.9 (0.4-2.0) mmol/L Calcium (8.5-10.1) mg/dl Magnesium (1.7-2.4) mg/dl Total Bilirubin (0.2-1.0) mg/dl AST (13-39) U/L ALT (7-52) U/L Alkaline Phosphatase (34-104) U/L Troponin I High Sens (0-14) pg/ml C-Reactive Protein 3.19 H (0-0.5) mg/dl Total Protein (6.0-8.3) gm/dl Albumin (3.4-5.0) gm/dl Globulin (2.5-4.0) gm/dl Albumin/Globulin Ratio (0.9-2) Procalcitonin 0.06 (0-0.5) ng/ml Adenovirus (PCR) (NotDetected) B. pertussis DNA (PCR) (NotDetected) B.parapertussis DNA PCR (NotDetected) C. pneumoniae DNA (PCR) (NotDetected) Coronavirus OC43 (PCR) (NotDetected) Coronavirus HKU1 (PCR) (NotDetected) Coronavirus 229E (PCR) (NotDetected) SARS-CoV-2 (PCR) (NotDetected) Coronavirus NL63 (PCR) (NotDetected) Human Metapneumovir PCR (NotDetected) Influenza A (H3) PCR (NotDetected) Influenza Type B (PCR) (NotDetected) M. pneumoniae (PCR) (NotDetected) Parainfluenza 1 (PCR) (NotDetected) Parainfluenza 2 (PCR) (NotDetected) Parainfluenza 3 (PCR) (NotDetected) Parainfluenza 4 (PCR) (NotDetected) RSV (PCR) (NotDetected) Entero/Rhino (PCR) (NotDetected) 07/15/22 07/15/22 07/15/22 Range/Units 18:33 18:33 18:33 WBC 5.55 (4.8-10.8) K/ul RBC 4.41 (3.93-5.22) M/uL Hgb 12.4 (12.0-16.0) g/dl Hct 37.9 (34.1-44.9) % MCV 85.9 (80.0-100.0) fL MCH 28.1 (25.0-34.0) pg MCHC 32.7 (32.0-36.0) g/dL RDW Std Deviation 42.6 (36.4-46.3) fL RDW Coeff of Suleiman 13.5 (11.5-14.5) % Plt Count 213 (130-400) K/uL MPV 9.7 (9.4-12.3) fL Immature Gran % (Auto) 0.2 % Neut % (Auto) 73.3 % Lymph % (Auto) 14.2 % [place] % (Auto) 11.7 % Eos % (Auto) 0.4 % Baso % (Auto) 0.2 % Neut # (Auto) 4.07 (1.4-6.5) K/uL Lymph # (Auto) 0.79 L (1.2-3.4) K/uL [place] # (Auto) 0.65 (0.24-0.82) K/uL Eos # (Auto) 0.02 (0-0.50) K/uL Baso # (Auto) 0.01 (0-0.2) K/uL Immature Gran # (Auto) 0.01 (0.00-0.02) K/uL PT 10.9 (9.0-12.0) Seconds INR 1.0 (0.9-1.1) APTT 30.2 (21.0-31.0) Seconds PTT Ratio 1.1 Sodium 134 L (136-145) mmol/L Potassium 3.4 L (3.5-5.1) mmol/L Chloride 100 (98-107) mmol/L Carbon Dioxide 26 (21-32) mmol/L Anion Gap 8 (3-11) BUN 10 (6-23) mg/dl Creatinine 0.86 (0.6-1.2) mg/dl Est Cr Clr Drug Dosing 76.5 ml/min Est GFR ( Amer) 93.9 ml/min Est GFR (Non-Af Amer) 81.0 ml/min BUN/Creatinine Ratio 11.6 (10-20) Glucose 118 H (70-99(Fasting)) mg/dl Lactate (0.4-2.0) mmol/L Calcium 7.9 L (8.5-10.1) mg/dl Magnesium 1.9 (1.7-2.4) mg/dl Total Bilirubin 0.3 (0.2-1.0) mg/dl AST 29 (13-39) U/L ALT 30 (7-52) U/L Alkaline Phosphatase 107 H (34-104) U/L Troponin I High Sens 6.4 (0-14) pg/ml C-Reactive Protein (0-0.5) mg/dl Total Protein 7.0 (6.0-8.3) gm/dl Albumin 3.8 (3.4-5.0) gm/dl Globulin 3.2 (2.5-4.0) gm/dl Albumin/Globulin Ratio 1.2 (0.9-2) Procalcitonin (0-0.5) ng/ml Adenovirus (PCR) (NotDetected) B. pertussis DNA (PCR) (NotDetected) B.parapertussis DNA PCR (NotDetected) C. pneumoniae DNA (PCR) (NotDetected) Coronavirus OC43 (PCR) (NotDetected) Coronavirus HKU1 (PCR) (NotDetected) Coronavirus 229E (PCR) (NotDetected) SARS-CoV-2 (PCR) (NotDetected) Coronavirus NL63 (PCR) (NotDetected) Human Metapneumovir PCR (NotDetected) Influenza A (H3) PCR (NotDetected) Influenza Type B (PCR) (NotDetected) M. pneumoniae (PCR) (NotDetected) Parainfluenza 1 (PCR) (NotDetected) Parainfluenza 2 (PCR) (NotDetected) Parainfluenza 3 (PCR) (NotDetected) Parainfluenza 4 (PCR) (NotDetected) RSV (PCR) (NotDetected) Entero/Rhino (PCR) (NotDetected) Diagnostic Findings Chest X-Ray 07/15/22 18:35 XR chest 1V portable HISTORY: Dyspnea COMPARISON: Chest 07/13/2018. FINDINGS: No pneumothorax. No pleural effusions. The heart is top normal in size. The lungs are hyperexpanded. No evidence for pulmonary edema. No new focal lung consolidations to suggest a pneumonia. Stable interstitial prominence of the lung bases may be due to vascular crowding from the hyperexpanded lungs. IMPRESSION: No significant change compared to the prior study. No acute process. Resident Activity Tracking Resident Involvement: Resident Care Provided Care Provided: Adult Hospital Medicine
[2022-07-16] MEDS: AZITHROMYCIN 250 MG TAB PO SCH (09:03)
[2022-07-16] MEDS: FLUTICASONE/VILANTEROL 200/25MCG 14 PUFFS/INHALER INH SCH (09:04)
[2022-07-16] MEDS: UMECLIDINIUM BROMIDE 62.5MCG/BLISTER 7 PUFFS/INHALER INH SCH (09:04)
--- NOTE | 2022-07-16 12:17 | Electrocardiogram Report ---
Test Reason : Blood Pressure : / mmHG Vent. Rate : 122 BPM Atrial Rate : 122 BPM P-R Int : 144 ms QRS Dur : 072 ms QT Int : 314 ms P-R-T Axes : 078 088 057 degrees QTc Int : 447 ms Poor data quality, interpretation may be adversely affected Sinus tachycardia with frequent Premature ventricular complexes Possible Left atrial enlargement Septal infarct , age undetermined Abnormal ECG When compared with ECG of 13-JUL-2018 20:21, Premature ventricular complexes are now Present Nonspecific T wave abnormality now evident in Anterior leads Confirmed by John Mancilla [id number]) on 07/16/2022 12:17:32 PM Referred By: REFERRED SELF Confirmed By:John Mancilla
[2022-07-17] MEDS: LEVALBUTEROL HCL 0.63 MG/3 ML NEB NEB SCH ×3 (01:30→13:13)
[2022-07-17] MEDS: methylPREDNISolone 40 MG in SYRINGE 0 ML IV SCH (04:19)
--- NOTE | 2022-07-17 06:59 | Hospitalist Progress Note ---
Date of Service July 17, 2022 Assessment & Plan (1) COPD with exacerbation: Plan: Caity Yang is a 47 y/o female with PMHx significant for COPD (Gold 4, FEV1 26% when checked in 03/2022), severe persistent eosinophilic asthma, chronic hypoxic respiratory failure (on home O2), and significant second hand smoke exposure hx, who presented to [facility] ED on 07/15 for fever/chills, body aches and cough, x3 days with associated inspiratory chest/back pain and hypoxia to 87% on RA admitted for COPD exacerbation/asthma exacerbation in the setting of Flu A infection now HDS and clinically improving. #COPD/Asthma with exacerbation Fever/chills, body aches, shortness of breath, and increased cough/mucus x3 days. Flu A positive. Hypoxic to 88% on room air and improved on 2L, scattered wheezes on exam. Moderate COPD/asthma exacerbation due to influenza A. S/p SoluM edrol 60mg IV in ED, 2 days of SoluMedrol 40 mg IV Q8H. Transition to oral pred and monitor respiratory status. If clinical condition continues to improve could consider discharge. [] transition to oral prednisone 40 mg for a total of 5 days of steroids [] Azithromycin 500 mg x1, 250 mg x 4 (/), Oseltamivir 75 mg PO BID [] Xopenex nebs scheduled and as needed, s/p duoneb x1 albuterol neb x1 with tachycardia 100s-110s [] Encourage IS and flutter valve #Influenza A Plan as above #Tachycardia Sinus tachycardia 100s-110s on admit, likely due to frequent Albuterol dosing prior to admission. Now normocardic. Utilize Xopenex nebs as stated above. Telemetry monitoring. #Eosinophilic asthma F/w Dr. Harmon and Dr. Woo, with plans to start Fasenra qmonthly injections - first dose scheduled for 08/02/22 with f/u dose 4 weeks later on 08/30/22. Continue home inhalers #Hypokalemia - resolved K 3.4 - repleted with KCl 40mEq tablet and K-containing IVFs. AM BMP Code status: full DVT ppx: Lovenox FENGI: regular Dispo medsurg tele, pending clinical improvement (2) Influenza A: (3) Tachycardia: (4) Eosinophilic asthma: (5) Severe persistent asthma: (6) Hypokalemia: Admission and Anticipated Discharge Date Admission Date: July 15, 2022 Supervising Physician Co-Signing Physician Notes Patient seen and examined with PGY-1 Dr. Latif. Agree with history, exam findings, assessment and plan of care as outlined. Caity Yang is 47 year old female with history of COPD, severe persistent eosinophilic asthma, chronic hypoxic respiratory failure (2L O2 at baseline) admitted with COPD/asthma exacerbation in the setting of influenza A infection. VS and nursing notes reviewed. Non-toxic appearing. Heart with regular rate and rhythm. Breathing comfortably on 2L O2. No accessory muscle use. Lungs with good air movement throughout. Coarse breath sounds throughout with slight end expiratory wheeze. Labs and imaging reviewed. 1. Asthma/COPD exacerbation in the setting of influenza A. One dose of SoluMedrol today then transitioned prednisone 40mg daily. Continue with Tamiflu, azithromycin. Xopenex q6h PRN. Mucienx, ICS, flutter. On chronic home O2 (2L at baseline, titrate to 88-92%). 2. Eosinophilic asthma, severe persistent asthma. Follows with pulm and allergy as an outpatient. 3. Tachycardia. Likely secondary to beta-agonist. Dispo: pending clinical improvement. Subjective Patient notes that she is feeling much improved. She feels about back at her baseline about 90% better. She denies any CP, f/c/abdominal pain/diarrhea/dysuria. The patient would like to leave today if possible. Review of Systems Review of Systems: See HPI Physical Exam Physical Exam: General: A&Ox3. NAD. Cooperative. HEENT: Atraumatic, normocephalic. Pulm: Bilateral wheezes improved. Good aeration. No rhonchi. Symmetrical chest rise. No increased work of breathing. No respiratory distress. Cardiac: RRR, -mrg. Skin: warm, dry, no rash Results & Data Results & Data ([facility]) Vital Signs (Past 12 Hours) Vital Signs Temp Pulse Pulse Resp BP Pulse Ox O2 Del Method 07/17/22 06:54 Nasal Cannula 07/17/22 02:50 36.7 C 65 16 108/65 97 Nasal Cannula 07/16/22 21:47 86 07/16/22 23:27 36.6 C 80 16 113/71 98 Nasal Cannula 07/16/22 22:15 Nasal Cannula 07/16/22 19:49 16 94 Nasal Cannula 07/16/22 19:31 36.6 C 78 18 127/79 94 Nasal Cannula O2 Flow Rate 07/17/22 06:54 2 07/17/22 02:50 2 07/16/22 21:47 07/16/22 23:27 2 07/16/22 22:15 2 07/16/22 19:49 2 07/16/22 19:31 2 Laboratory Results 07/17/22 07/17/22 Range/Units 07:17 07:17 WBC 12.14 H (4.8-10.8) K/ul RBC 4.38 (3.93-5.22) M/uL Hgb 12.3 (12.0-16.0) g/dl Hct 38.0 (34.1-44.9) % MCV 86.8 (80.0-100.0) fL MCH 28.1 (25.0-34.0) pg MCHC 32.4 (32.0-36.0) g/dL RDW Std Deviation 43.1 (36.4-46.3) fL RDW Coeff of Suleiman 13.5 (11.5-14.5) % Plt Count 240 (130-400) K/uL MPV 10.1 (9.4-12.3) fL Immature Gran % (Auto) 0.5 % Neut % (Auto) 88.6 % Lymph % (Auto) 7.3 % [place] % (Auto) 3.5 % Eos % (Auto) 0.0 % Baso % (Auto) 0.1 % Neut # (Auto) 10.75 H (1.4-6.5) K/uL Lymph # (Auto) 0.89 L (1.2-3.4) K/uL [place] # (Auto) 0.43 (0.24-0.82) K/uL Eos # (Auto) 0.00 (0-0.50) K/uL Baso # (Auto) 0.01 (0-0.2) K/uL Immature Gran # (Auto) 0.06 H (0.00-0.02) K/uL Sodium 139 (136-145) mmol/L Potassium 4.3 (3.5-5.1) mmol/L Chloride 105 (98-107) mmol/L Carbon Dioxide 29 (21-32) mmol/L Anion Gap 5 (3-11) BUN 13 (6-23) mg/dl Creatinine 0.55 L (0.6-1.2) mg/dl Est Cr Clr Drug Dosing 119.6 ml/min Est GFR ( Amer) 130.4 ml/min Est GFR (Non-Af Amer) 112.5 ml/min BUN/Creatinine Ratio 23.6 H (10-20) Glucose 132 H (70-99(Fasting)) mg/dl Calcium 8.7 (8.5-10.1) mg/dl Diagnostic Findings No new imaging Resident Activity Tracking Resident Involvement: Resident Care Provided Care Provided: Adult [facility] Medicine
[2022-07-17 07:55] LABS: Basophils # (auto) 0.01 K/uL (0-0.2); Basophils % (auto) 0.1 %; Hemoglobin 12.3 g/dl (12.0-16.0); Immature Granulocytes # (auto) 0.06 K/uL (0.00-0.02); Immature Granulocytes % (auto) 0.5 %; Lymphocytes # (auto) 0.89 K/uL (1.2-3.4); Lymphocytes % (auto) 7.3 %; Mean Corpuscular Hemoglobin 28.1 pg (25.0-34.0); Mean Corpuscular Hgb Conc 32.4 g/dL (32.0-36.0); Mean Corpuscular Volume 86.8 fL (80.0-100.0); Mean Platelet Volume 10.1 fL (9.4-12.3); Monocytes # (auto) 0.43 K/uL (0.24-0.82); Monocytes % (auto) 3.5 %; Neutrophils # (auto) 10.75 K/uL (1.4-6.5); Neutrophils % (auto) 88.6 %; Platelet Count 240 K/uL (130-400); RDW Coefficient of Variation 13.5 % (11.5-14.5); RDW Standard Deviation 43.1 fL (36.4-46.3); Red Blood Count 4.38 M/uL (3.93-5.22); White Blood Count 12.14 K/ul (4.8-10.8)
[2022-07-17] MEDS: FLUTICASONE/VILANTEROL 200/25MCG 14 PUFFS/INHALER INH SCH (08:01)
[2022-07-17] MEDS: UMECLIDINIUM BROMIDE 62.5MCG/BLISTER 7 PUFFS/INHALER INH SCH (08:02)
[2022-07-17] MEDS: guaiFENesin 600 MG TABCR PO SCH ×2 (08:02→20:42)
[2022-07-17] MEDS: AZITHROMYCIN 250 MG TAB PO SCH (08:03)
[2022-07-17] MEDS: OSELTAMIVIR PHOSPHATE 75 MG CAP PO SCH ×2 (08:03→20:42)
[2022-07-17 08:13] LABS: BUN Creatinine Ratio 23.6 (10-20); Calcium 8.7 mg/dl (8.5-10.1); Creatinine Clr Calc Pharmacy 119.6 ml/min; Est GFR (African American) 130.4 ml/min; Est GFR (Non-African American) 112.5 ml/min; Potassium 4.3 mmol/L (3.5-5.1)
[2022-07-17] MEDS ORDERED: LEVALBUTEROL HCL 0.63 MG/3 ML NEB NEB PRN (18:15)
[2022-07-17] MEDS: ENOXAPARIN INJ 40 MG/0.4 ML SYR SQ SCH (20:42)
--- NOTE | 2022-07-18 06:57 | Hospitalist Progress Note ---
Date of Service July 18, 2022 Assessment & Plan (1) COPD with exacerbation: Plan: Caity Yang is a 47 y/o female with PMHx significant for COPD (Gold 4, FEV1 26% when checked in 03/2022), severe persistent eosinophilic asthma, chronic hypoxic respiratory failure (on home O2), and significant second hand smoke exposure hx, who presented to [facility] ED on 07/15 for fever/chills, body aches and cough, x3 days with associated inspiratory chest/back pain and hypoxia to 87% on RA admitted for COPD exacerbation/asthma exacerbation in the setting of Flu A infection now HDS and clinically improving. #COPD/Asthma with exacerbation Fever/chills, body aches, shortness of breath, and increased cough/mucus x3 days. Flu A positive. Hypoxic to 88% on room air and improved on 2L, scattered wheezes on exam. Moderate COPD/asthma exacerbation due to influenza A. S/p SoluM edrol 60mg IV in ED, 2 days of SoluMedrol 40 mg IV Q8H. Transition to oral pred and monitor respiratory status. If clinical condition continues to improve could consider discharge. [] transition to oral prednisone 40 mg for a total of 5 days of steroids [] Azithromycin 500 mg x1, 250 mg x 4 (/), Oseltamivir 75 mg PO BID [] Xopenex nebs scheduled and as needed, s/p duoneb x1 albuterol neb x1 with tachycardia 100s-110s [] Encourage IS and flutter valve #Influenza A Plan as above #Tachycardia Sinus tachycardia 100s-110s on admit, likely due to frequent Albuterol dosing prior to admission. Now normocardic. Utilize Xopenex nebs as stated above. Telemetry monitoring. #Eosinophilic asthma F/w Dr. Harmon and Dr. Woo, with plans to start Fasenra qmonthly injections - first dose scheduled for 08/02/22 with f/u dose 4 weeks later on 08/30/22. Continue home inhalers #Hypokalemia - resolved K 3.4 - repleted with KCl 40mEq tablet and K-containing IVFs. AM BMP Code status: full DVT ppx: Lovenox FENGI: regular Dispo medsurg tele, pending clinical improvement (2) Influenza A: (3) Tachycardia: (4) Eosinophilic asthma: (5) Severe persistent asthma: (6) Hypokalemia: Admission and Anticipated Discharge Date Admission Date: July 15, 2022 Subjective Patient notes that she is feeling much improved. She feels about back at her baseline about 90% better. She denies any CP, f/c/abdominal pain/diarrhea/dysuria. The patient would like to leave today if possible. Review of Systems Review of Systems: See HPI Physical Exam Physical Exam: General: A&Ox3. NAD. Cooperative. HEENT: Atraumatic, normocephalic. Pulm: Bilateral wheezes improved. Good aeration. No rhonchi. Symmetrical chest rise. No increased work of breathing. No respiratory distress. Cardiac: RRR, -mrg. Skin: warm, dry, no rash Results & Data Results & Data ([facility]) Vital Signs (Past 12 Hours) Vital Signs Temp Pulse Pulse Resp BP Pulse Ox O2 Del Method 07/18/22 03:42 36.5 C 64 18 109/76 98 Nasal Cannula 07/17/22 22:01 81 07/17/22 23:02 36.7 C 73 18 124/80 96 Nasal Cannula 07/17/22 21:41 Nasal Cannula 07/17/22 19:52 36.6 C 75 18 130/86 96 Room Air O2 Flow Rate 07/18/22 03:42 2 07/17/22 22:01 07/17/22 23:02 2 07/17/22 21:41 2 07/17/22 19:52
[2022-07-18 07:21] LABS: Basophils # (auto) 0.02 K/uL (0-0.2); Basophils % (auto) 0.2 %; Eosinophils # (auto) 0.02 K/uL (0-0.50); Eosinophils % (auto) 0.2 %; Hematocrit (blood only) 37.7 % (34.1-44.9); Hemoglobin 12.1 g/dl (12.0-16.0); Immature Granulocytes # (auto) 0.04 K/uL (0.00-0.02); Immature Granulocytes % (auto) 0.4 %; Lymphocytes # (auto) 2.82 K/uL (1.2-3.4); Mean Corpuscular Hemoglobin 28.1 pg (25.0-34.0); Mean Corpuscular Hgb Conc 32.1 g/dL (32.0-36.0); Mean Corpuscular Volume 87.5 fL (80.0-100.0); Mean Platelet Volume 10.3 fL (9.4-12.3); Monocytes # (auto) 0.62 K/uL (0.24-0.82); Monocytes % (auto) 5.5 %; Neutrophils # (auto) 7.76 K/uL (1.4-6.5); Neutrophils % (auto) 68.7 %; Platelet Count 236 K/uL (130-400); RDW Coefficient of Variation 13.6 % (11.5-14.5); RDW Standard Deviation 43.8 fL (36.4-46.3); Red Blood Count 4.31 M/uL (3.93-5.22); White Blood Count 11.28 K/ul (4.8-10.8)
[2022-07-18 08:03] LABS: BUN Creatinine Ratio 19.2 (10-20); Calcium 8.1 mg/dl (8.5-10.1); Creatinine Clr Calc Pharmacy 90.1 ml/min; Est GFR (African American) 114.5 ml/min; Est GFR (Non-African American) 98.8 ml/min; Magnesium 2.2 mg/dl (1.7-2.4); Potassium 3.7 mmol/L (3.5-5.1)
[2022-07-18] MEDS: OSELTAMIVIR PHOSPHATE 75 MG CAP PO SCH (08:53)
[2022-07-18] MEDS: guaiFENesin 600 MG TABCR PO SCH (08:54)
[2022-07-18] MEDS: AZITHROMYCIN 250 MG TAB PO SCH (08:54)
[2022-07-18] MEDS: UMECLIDINIUM BROMIDE 62.5MCG/BLISTER 7 PUFFS/INHALER INH SCH (08:55)
[2022-07-18] MEDS: FLUTICASONE/VILANTEROL 200/25MCG 14 PUFFS/INHALER INH SCH (08:55)
[2022-07-18] MEDS ORDERED: predniSONE 20 MG TAB PO SCH (09:00)
--- NOTE | 2022-07-18 12:33 | Discharge Summary ---
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 Also c/o inspiratory chest/back pain that occurred with cough, in addition to hypoxia to 87% on room air at home. Patient was given ASA 324mg, Nitro SL x2 and Duonebs x1 by EMS with minimal improvement in symptoms. In the ED the patient was tachycardic to 118 and initially SpO2 88% on room air but improved to 92% on room air. Labs significant for leukopenia 0.79, Na 134, K 3.4. Respiratory biofire panel positive for influenza A. CXR with chronically hyperexpanded lungs but no acute process. In the ED patient was given Albuterol nebs x1 (total of 2 today), NSS 500cc bolus, and SoluMedrol 60mg IV x1. Admission Exam Per Admitting Provider General: A&Ox3. NAD. Cooperative. HEENT: Atraumatic, normocephalic. Pulm: Bilateral wheezes, but good aeration. No rales/rhonchi. Symmetrical chest rise. No increase work of breathing. No respiratory distress. Cardiac: RRR, -mrg. Radial pulses intact and symmetrical. No LE edema. Abdominal: soft, non-tender, non-distended, BS x 4 Skin: warm, dry, no rash Principal Diagnosis COPD/Asthma exacerbation Discharge Exam General: A&Ox3. NAD. Cooperative. HEENT: Atraumatic, normocephalic. Pulm: Bilateral wheezes improved. Good aeration. No rhonchi. Symmetrical chest rise. No increased work of breathing. No respiratory distress. Cardiac: RRR, -mrg. Skin: warm, dry, no rash Discharge Data Allergies Allergy/AdvReac Type Severity Reaction Status Date / Time No Known Allergies Allergy Verified 05/25/22 12:49 Consultations 07/15/22 19:40 ED Decision to Admit Stat Ordered Studies 07/18/22 07/18/22 07/17/22 Range/Units 06:52 06:51 07:17 WBC 11.28 H (4.8-10.8) K/ul RBC 4.31 (3.93-5.22) M/uL Hgb 12.1 (12.0-16.0) g/dl Hct 37.7 (34.1-44.9) % MCV 87.5 (80.0-100.0) fL MCH 28.1 (25.0-34.0) pg MCHC 32.1 (32.0-36.0) g/dL RDW Std Deviation 43.8 (36.4-46.3) fL RDW Coeff of Suleiman 13.6 (11.5-14.5) % Plt Count 236 (130-400) K/uL MPV 10.3 (9.4-12.3) fL Immature Gran % (Auto) 0.4 % Neut % (Auto) 68.7 % Lymph % (Auto) 25.0 % [place] % (Auto) 5.5 % Eos % (Auto) 0.2 % Baso % (Auto) 0.2 % Neut # (Auto) 7.76 H (1.4-6.5) K/uL Lymph # (Auto) 2.82 (1.2-3.4) K/uL [place] # (Auto) 0.62 (0.24-0.82) K/uL Eos # (Auto) 0.02 (0-0.50) K/uL Baso # (Auto) 0.02 (0-0.2) K/uL Immature Gran # (Auto) 0.04 H (0.00-0.02) K/uL Sodium 140 (136-145) mmol/L Potassium 3.7 (3.5-5.1) mmol/L Chloride 104 (98-107) mmol/L Carbon Dioxide 31 (21-32) mmol/L Anion Gap 5 (3-11) BUN 14 (6-23) mg/dl Creatinine 0.73 (0.6-1.2) mg/dl Est Cr Clr Drug Dosing 90.1 ml/min Est GFR ( Amer) 114.5 ml/min Est GFR (Non-Af Amer) 98.8 ml/min BUN/Creatinine Ratio 19.2 (10-20) Glucose 86 (70-99(Fasting)) mg/dl Calcium 8.1 L (8.5-10.1) mg/dl Magnesium 2.2 2.1 (1.7-2.4) mg/dl Chest X-Ray 07/15/22 18:35 XR chest 1V portable HISTORY: Dyspnea COMPARISON: Chest 07/13/2018. FINDINGS: No pneumothorax. No pleural effusions. The heart is top normal in size. The lungs are hyperexpanded. No evidence for pulmonary edema. No new focal lung consolidations to suggest a pneumonia. Stable interstitial prominence of the lung bases may be due to vascular crowding from the hyperexpanded lungs. IMPRESSION: No significant change compared to the prior study. No acute process. ACT 112: Negative or not required by law. Electronically signed by: Javier Baldwin M.D. 07/15/2022 7:25 PM Hospital Course (1) COPD with exacerbation: Caity Yang is a 47 y/o female with PMHx significant for COPD (Gold 4, FEV1 26% when checked in 03/2022), severe persistent eosinophilic asthma, chronic hypoxic respiratory failure (on home O2), and significant second hand smoke exposure hx, who presented to [facility] ED on 07/15 for fever/chills, body aches and cough, x3 days with associated inspiratory chest/back pain and hypoxia to 87% on RA admitted for COPD exacerbation/asthma exacerbation in the setting of Flu A infection now HDS, clinically improving, and stable for discharge. #COPD/Asthma with exacerbation Fever/chills, body aches, shortness of breath, and increased cough/mucus x3 days. Flu A positive. Hypoxic to 88% on room air and improved on 2L, scattered wheezes on exam. Moderate COPD/asthma exacerbation due to influenza A. S/p SoluMedrol 60mg IV in ED, 2 days of SoluMedrol 40 mg IV Q8H. Transition to oral pred 40 mg for a total of 5 days of steroids. Will complete 5 days of tamiflu and azithromycin outpatient. F/u with PCP within 2-5 days of discharge. #Influenza A Plan as above #Tachycardia Sinus tachycardia 100s-110s on admit, likely due to frequent Albuterol dosing prior to admission. Now normocardic. Utilized Xopenex nebs while inpatient. Monitored with tele during stay. Can resume home neb on discharge. #Eosinophilic asthma F/w Dr. Harmon and Dr. Woo, with plans to start Fasenra Qmonthly injections - first dose scheduled for 08/02/22 with f/u dose 4 weeks later on 08/30/22. Continue home inhalers #Hypokalemia - resolved Electrolytes repleted as needed during hospital stay. Code status: full DVT ppx: Lovenox FENGI: regular Dispo: home (2) Influenza A: (3) Tachycardia: (4) Eosinophilic asthma: (5) Severe persistent asthma: (6) Hypokalemia: Total Time Total Time Spent Total Time Spent (In Minutes): See attending attestation Discharge Plan Discharge Items Patient Disposition: Home - Self-Care Reason For Visit: COPD EXACERBATION Discharge Diagnosis: Okhci-cv-[id number] respiratory failure with hypoxia, COPD exacerbation, influenza A Condition on Discharge: Fair Activity: Resume your previous activity Non-emergency contact: Primary Care Provider and [employer] Operator Chief Call non-emergency contact if: you have any medication questions, your symptoms worsen and you have a fever Follow-up/Referrals: Bety Wu PA-C [Primary Care Provider] - 07/23/22 2:00 pm (If you are unable to keep your follow up appointment please call the office and reschedule. ) Diet: Heart Healthy Addtl Attending Provider Instructions: You were admitted to the hospital for shortness of breath and a low level of oxygen in your blood. We believe this was caused by influenza which led to a COPD exacerbation. You were treated with steroids, antibiotics, and breathing treatments. You have recovered well, and we feel it is safe for you to return home. A discharge summary will be sent to your primary care physician to ensure continuity of care. Please bring this discharge summary with you to your next office appointment so that your provider can review it at that time. Follow-up appointments: Make a follow-up appointment with your PCP by Saturday or Saturday. It is very important that you follow up with them shortly after discharge from the hospital. Keep all your follow-up appointments as already scheduled. If you cannot make an appointment, notify your provider. Medications: Your medication list has been reviewed and reconciled upon discharge to ensure accuracy and continuity of care. An updated list of all your medications is included with your hospital discharge paperwork. Please review this list closely, and make note of any changes. * We sent a new medication called Azithromycin to your pharmacy. Take one tablet in the morning for 1 day.. * We sent a new medication called Prednisone to your pharmacy. Take one tablet in the morning for 1 day. * We sent a new medication called Tamiflu to your pharmacy. Take one tablet twice a day for 2 more days. If you have any issues filling these prescriptions, please call [phone] and ask to leave a message for Dr. Elo Latif. Take your medications as instructed; do not skip a dose of your medicines. Make sure all of your doctors know every medicine you are taking (including ove [id number] medicines, vitamins, and supplements). Call your primary care provider before taking any new medicines (including lfnp-szv-[id number] medicines, vitamins, and supplements), because some of these may interact with your current medications, or may make your symptoms worse. Tell your primary care provider if you cannot afford your medications. CONTACT YOUR PRIMARY CARE PROVIDER if you experience any of the following: Fever, chills, body aches Worsening shortness of breath or wheezing Difficulty following your treatment plan, or difficulty taking medications CALL 911 OR GO TO THE EMERGENCY DEPARTMENT if you experience any of the following: Sudden, severe abdominal pain or nausea/vomiting Severe chest pain, or chest pain that radiates (moves) to your jaw or arm Sudden, severe shortness of breath or difficulty breathing Thank you for allowing us to participate in your care. Pending Studies at Discharge: No Stand-Alone Forms: [facility] [employer], Pain - Opioid Pain Management, Work/School Release, Smoking Cessation Medications and DC Order Prescriptions: New azithromycin 250 mg Tablet 250 mg PO QAM Qty: 1 0RF oseltamivir [Tamiflu] 75 mg Capsule 75 mg PO BID Qty: 4 0RF prednisone 20 mg Tablet 40 mg PO QAM Qty: 1 0RF Continued budesonide 0.5 mg/2 mL suspension for nebulization 0.5 mg inhalation BID Qty: 360 1RF budesonide-formoterol [Symbicort] 160-4.5 mcg/actuation HFA aerosol inhaler 2 inh INH BID Qty: 10.2 2RF Rx Instructions: Has to be Symbicort brand for insurance not generic Incruse Ellipta 62.5 mcg/actuation blister with device 1 inh inhalation DAILY Qty: 30 5RF (D[place] [facility] [place] Instructions miscellaneous .MEDSUPPLY Qty: 1 0RF Rx Instructions: To be used 4 times a day or as directed. Lifetime need. (DME) nebulizer accessories Kit See Rx Instructions .MEDSUPPLY Qty: 1 5RF Rx Instructions: Hoses, filters, masks/mouthpieces. Lifetime need Fasenra 30 mg/mL syringe 30 mg subcut .every 4 weeks Qty: 1 11RF Rx Instructions: Loading dose 30mg every 4 weeks x 3 doses, then every 8 weeks APPROVED Good 09/19/21 - 07/21/23, did not start yet. ipratropium-albuterol 0.5 mg-3 mg(2.5 mg base)/3 mL Solution For Nebulization 3 ml INHALATION QID acetaminophen [Tylenol Extra Strength] 500 mg Tablet 1,000 mg PO Q6H PRN (Reason: Pain) Discharge Orders: Discharge Order (Routine); Ordered 07/18/22 Ordered By: Elo Moore/Other Patient Handouts: Asthma and COPD Admission Data Admit Date/Time: 07/15/22 20:25 Attending Provider: Hanny Artis Admit Provider: Gamaliel Campbell Primary Care Provider: Bety Wu Other Providers: Ryan Guthrie Other Interventions: Discharge Summary Assessment (RN) Last Done: 07/18/22 16:10 Supervising Physician Co-Signing Physician Notes Patient seen and examined independently of PGY-1 Dr. Latif. Agree with history, exam findings, assessment and plan of care as outlined. Caity Yang is 47 year old female with history of COPD, severe persistent eosinophilic asthma, chronic hypoxic respiratory failure (2L O2 at baseline) admitted with COPD/asthma exacerbation in the setting of influenza A infection. VS and nursing notes reviewed. Non-toxic appearing. Color is good. Heart with regular rate and rhythm. Breathing comfortably on 2L O2. No accessory muscle use. Lungs with good air movement throughout. Coarse breath sounds throughout with slight end expiratory wheeze. Labs and imaging reviewed. 1. Asthma/COPD exacerbation in the setting of influenza A. Transitioned to prednisone 40mg daily. Continue with Tamiflu, azithromycin. Xopenex q6h PRN. Mucinex, ICS, flutter. On chronic home O2 (2L at baseline, titrate to 88-92%). Finish 5 day course of tamiflu, prednisone. 2. Eosinophilic asthma, severe persistent asthma. Follows with pulm and allergy as an outpatient. 3. Tachycardia. Secondary to beta-agonist--improved once she was no longer needing the beta-agonists as frequently. Dispo: Discharge home today. I personally spent 25 minutes discharge planning for this patient. . Resident Activity Tracking Resident Involvement: Resident Care Provided Care Provided: Adult Hospital Medicine
--- NOTE | 2022-07-24 04:02 | Billing Data ---
Date of Service July 24, 2022 Coding Level of Care Code 18596 Initial Inpt Care Lvl 3
== END 2022-07-18 16:48 | disposition home or self-care (01) ==
LOC: ED 18:22 → EDINP 20:25 → INTOOBSV 20:25 → SUATTDRO 20:25 → EDINP 22:29 → 2W 07-16 09:24